=== PATIENT | female | born 1975 ===

== ENCOUNTER → 2023-12-28 06:23 | Day surgery (SDC) | payer BC, SELFPAY | LOC: GI 06:23 | PROVIDERS: ATTENDING PHYSICIAN Internal Medicine Gastroenterology | DX: R10.13 Epigastric pain (principal); R63.4 Abnormal weight loss; K44.9 Diaphragmatic hernia without obstruction or gangrene; K31.89 Other diseases of stomach and duodenum | CPT/HCPCS: 43239; 88305; 88342 ==